=== PATIENT | female | born 1935 | race Caucasian/White ===

== ENCOUNTER 2020-06-16 13:54 | Inpatient (IN) | payer MEDICARE ==
[~2020-06-16] VITALS: Ht 172.7 cm; Wt 48.6 kg
--- NOTE | 2020-06-16 14:16 | NUR ---
PT BIB EMS FOR POS COVID [facility]. PT HAS DEMENTIA A&OX1. TO SELF ONLY. PT CO OF GENERALIZED PAIN. NOT IN DISTRESS. LOW EXTRMETIES BILAT 2+ EDEMA W FLAKY REDNESS. RECTAL TEMP 98.7. DRY MUCOUS MEMBRANES
[2020-06-16] MEDS ORDERED: SODIUM CHLORIDE 0.9% 1,000ML IVBOLUS ONE (14:30)
[2020-06-16] MEDS ORDERED: SODIUM CHLORIDE FLUSH 10ML SYR IVF ONE (14:30)
[2020-06-16 15:06] LABS: BASOPHILS % (AUTO) 0 % (0-1); EOSINOPHILS % (AUTO) 1 % (1-7); LYMPHOCYTES % (AUTO) 26 % (22-44); MEAN CORPUSCULAR HEMOGLOBIN 31.2 pg (27.0-34.8); MEAN CORPUSCULAR HGB CONC 33.1 g/dL (32.4-35.8); MEAN PLATELET VOLUME 7.2 fL (7.4-10.4); MONOCYTES % (AUTO) 9 % (2-9); NEUTROPHILS % (AUTO) 65 % (42-75); PLATELET COUNT 386 x10^3/uL (130-400); RED BLOOD COUNT 3.49 x10^6/uL (3.82-5.3)
[2020-06-16 15:14] LABS: ALANINE AMINOTRANSFERASE 16 U/L (12-78); ALBUMIN 2.6 g/dL (3.4-5.0); ANION GAP 6 mmol/L (5-15); CHLORIDE 110 mmol/L (98-107); CREATININE 0.98 mg/dL (0.55-1.02)
[2020-06-16 15:17] LABS: ALKALINE PHOSPHATASE 68 U/L (45-117); BILIRUBIN,TOTAL 0.6 mg/dL (0.2-1.0); TOTAL PROTEIN 6.9 g/dL (6.4-8.2)
[2020-06-16 15:22] LABS: MD NO
--- NOTE | 2020-06-16 16:12 | NUR ---
PT RESTING IN ROOM. REGULAR RESP. NO ACUTE DISTRESS NOTED. CARDIAC MONITIOR ON. WILL CONTINUE TO MONITIOR.
[2020-06-16 16:58] LABS: MICROSCOPIC NOT IND
--- NOTE | 2020-06-16 17:32 | NUR ---
PT RESTING IN ROOM. REGULAR RESP. VS STABLE. CALL LIGHT IN PLACE. WILL CONTINUE TO MONITOR.
[2020-06-16] MEDS ORDERED: LABETALOL 5MG/ML, 20ML IVPush PRN (18:00)
[2020-06-16] MEDS ORDERED: LACTATED RINGERS 1,000 ML IV SCH (18:00)
[2020-06-16] MEDS ORDERED: ACETAMINOPHEN 325 MG TABLET PO PRN (18:00)
[2020-06-16] MEDS ORDERED: ONDANSETRON ODT 4 MG PO PRN (18:00)
--- NOTE | 2020-06-16 18:33 | NUR ---
LAB IN ROOM. VS STABLE. CALL LIGHT IN PLACE. WILL CONTINUE TO MONITOR.
[2020-06-16 18:39] LABS: HCT (SEDRATE) 31.2 % (34.6-47.8)
[2020-06-16 18:59] LABS: C-REACTIVE PROTEIN, QUANT 5.75 mg/dL (0.02-0.49)
--- NOTE | 2020-06-16 19:04 | NUR ---
REPORT GIVEN TO JOSE CHAVARRIA
--- NOTE | 2020-06-16 19:09 | NUR ---
REPORT RECIEVBED FROM MELQUIADES GARCIA. PT RESTING IN [facility], NO NEEDS AT THIS TIME.
--- NOTE | 2020-06-16 21:40 | NUR ---
PT RESTLESS IN BED, PT TOOK OFF ALL MONITORS AND TOOK IV OUT, PT CLEANED UP AND GIVEN NEW BEDDING. WILL ATTEMPT NEW IV
[2020-06-16] MEDS ORDERED: HALOPERIDOL 5 MG/ML ONE (21:56)
[2020-06-16] MEDS ORDERED: HALOPERIDOL 5 MG/ML IM ONE (22:00)
--- NOTE | 2020-06-16 22:02 | NUR ---
PT VERY RESTLESS AND UNCOOPERATIVE, UNABLE TO PLACE IV, PT IS MOVING ARMS TOO MUCH AND CONFUSED. PT MEDICATED PER EMAR, WILL ATTEMPT IV WHEN PT IS MORE CALM. CONTINUOUS PULSE OX IN PLACE
--- NOTE | 2020-06-16 23:02 | NUR ---
PT PLACED ON HOSPITAL BED, NEW IV IN PLACE, PT DOZING INTERMITTENTLY AND MORE COOPERATIVE, WILL CONITNUE TO MONITOR
--- NOTE | 2020-06-17 00:10 | NUR ---
PT CLEANED UP, PT FEELING RESTLESS, NOT FOLLOWING COMMANDS. PT GIVEN NEW LINENS AND PT LAYING STILL AT THIS MOMENT, IV RETAPED.
--- NOTE | 2020-06-17 02:15 | NUR ---
PT VERY RESTLESS, PULLING OFF MONITORS, AND 02. PT UNCOOPERATIVE WITH THIS RN AND IS VERY CONFUSED. DR. MÁRQUEZ GAVE ORDER FOR REPEAT 2.5 MG HALDOL IM ONE TIME
[2020-06-17] MEDS ORDERED: HALOPERIDOL 5 MG/ML ONE (02:18)
[2020-06-17] MEDS ORDERED: HALOPERIDOL 5 MG/ML IM ONE (02:30)
--- NOTE | 2020-06-17 02:55 | NUR ---
float rn: pt attempted to remove bp/pulse ox cord, dressed pt back in gown, repositioned and 3 side rails up. pt reoriented to place/time. pt now resting in bed. call light in place
--- NOTE | 2020-06-17 04:35 | NUR ---
PT SLEEPING, RESPIRATIONS JESUS/UNLABORED, REPORT GIVEN TO JOSE APPLE
[2020-06-17 05:29] LABS: HCT (SEDRATE) 30.9 % (34.6-47.8)
[2020-06-17 05:30] LABS: BASOPHILS % (AUTO) 0 % (0-1); EOSINOPHILS % (AUTO) 0 % (1-7); LYMPHOCYTES % (AUTO) 11 % (22-44); MEAN CORPUSCULAR HEMOGLOBIN 31.1 pg (27.0-34.8); MEAN CORPUSCULAR HGB CONC 33.3 g/dL (32.4-35.8); MEAN PLATELET VOLUME 7.5 fL (7.4-10.4); MONOCYTES % (AUTO) 7 % (2-9); NEUTROPHILS % (AUTO) 82 % (42-75); PLATELET COUNT 358 x10^3/uL (130-400); RED BLOOD COUNT 3.35 x10^6/uL (3.82-5.3); RED CELL DISTRIBUTION WIDTH 13.6 % (9.6-15.2)
[2020-06-17 05:31] LABS: MD NO
[2020-06-17 05:42] LABS: D-DIMER 2.63 ug/mlFEU (0.00-0.52); INTERNATIONAL NORMALIZED RATIO 1.06 (0.93-1.1); PROTHROMBIN TIME 11.2 Seconds (9.6-11.5)
[2020-06-17 05:44] LABS: ALANINE AMINOTRANSFERASE 19 U/L (12-78); ALBUMIN 2.6 g/dL (3.4-5.0); ANION GAP 8 mmol/L (5-15); CALCIUM 8.8 mg/dL (8.5-10.1); CHLORIDE 108 mmol/L (98-107); CREATININE 0.98 mg/dL (0.55-1.02)
[2020-06-17 05:47] VITALS: BP 151/74
[2020-06-17 05:54] LABS: ALKALINE PHOSPHATASE 67 U/L (45-117); BILIRUBIN,TOTAL 0.6 mg/dL (0.2-1.0); TOTAL PROTEIN 6.8 g/dL (6.4-8.2)
[2020-06-17] MEDS ORDERED: DEXAMETHASONE 4 MG/ML, 5ML ONE (09:57)
[2020-06-17] MEDS: ZINC SULFATE 220 MG CAPSULE PO SCH ×2 (10:04→10:10)
[2020-06-17] MEDS: DEXAMETHASONE 4 MG/ML, 1ML IVPush SCH (10:04)
[2020-06-17] MEDS: THIAMINE 100MG TABLET PO SCH ×2 (10:04→10:09)
[2020-06-17] MEDS: CHOLECALCIFEROL 5,000u TAB PO SCH ×2 (10:04→10:09)
[2020-06-17] MEDS: ASCORBIC ACID 500 MG TABLET PO SCH ×2 (10:08→18:02)
[2020-06-17 10:13] VITALS: BP 135/81
[2020-06-17] MEDS ORDERED: POLYETHYLENE GLYCOL 17 GM PACKET NG ONE (13:30)
[2020-06-17 14:12] VITALS: BP 129/73
[2020-06-17] MEDS ORDERED: LORazepam 0.5MG TABLET PO PRN (15:00)
[2020-06-17] MEDS ORDERED: OMNIPAQUE 350 MG/ML, 100ML BOTTLE ONE (18:53)
[2020-06-17 19:35] VITALS: BP 139/68
[2020-06-17] MEDS: QUETIAPINE 25MG TABLET PO SCH (21:41)
[2020-06-18 01:00] VITALS: BP 122/70
[2020-06-18 04:45] LABS: BASOPHILS % (AUTO) 0 % (0-1); EOSINOPHILS % (AUTO) 0 % (1-7); LYMPHOCYTES % (AUTO) 16 % (22-44); MEAN CORPUSCULAR HGB CONC 33.1 g/dL (32.4-35.8); MEAN PLATELET VOLUME 7.8 fL (7.4-10.4); MONOCYTES % (AUTO) 13 % (2-9); NEUTROPHILS % (AUTO) 71 % (42-75); PLATELET COUNT 355 x10^3/uL (130-400); RED BLOOD COUNT 3.42 x10^6/uL (3.82-5.3); RED CELL DISTRIBUTION WIDTH 13.6 % (9.6-15.2)
[2020-06-18 04:52] LABS: INTERNATIONAL NORMALIZED RATIO 1.08 (0.93-1.1); MD NO; PROTHROMBIN TIME 11.4 Seconds (9.6-11.5)
[2020-06-18 04:57] LABS: CALCIUM 8.9 mg/dL (8.5-10.1); CHLORIDE 106 mmol/L (98-107)
[2020-06-18 05:05] LABS: ALANINE AMINOTRANSFERASE 22 U/L (12-78); ALBUMIN 2.5 g/dL (3.4-5.0); ALKALINE PHOSPHATASE 61 U/L (45-117); ANION GAP 10 mmol/L (5-15); BILIRUBIN,TOTAL 0.7 mg/dL (0.2-1.0); CREATININE 0.91 mg/dL (0.55-1.02); TOTAL PROTEIN 6.6 g/dL (6.4-8.2)
[2020-06-18 07:30] VITALS: BP 128/70
[2020-06-18] MEDS: DEXAMETHASONE 4 MG/ML, 1ML IVPush SCH (09:00)
[2020-06-18] MEDS ORDERED: DEXAMETHASONE 4 MG/ML, 5ML ONE (10:37)
[2020-06-18] MEDS: THIAMINE 100MG TABLET PO SCH (11:05)
[2020-06-18] MEDS: ZINC SULFATE 220 MG CAPSULE PO SCH (11:05)
[2020-06-18] MEDS: ASCORBIC ACID 500 MG TABLET PO SCH ×2 (11:05→17:00)
[2020-06-18] MEDS: CHOLECALCIFEROL 5,000u TAB PO SCH (11:05)
[2020-06-18 12:53] VITALS: BP 175/80
[2020-06-18 21:05] VITALS: BP 133/81
[2020-06-18] MEDS: MELATONIN 5 MG TABLET PO PRN (21:08)
[2020-06-18] MEDS: QUETIAPINE 25MG TABLET PO SCH (21:08)
[2020-06-19 00:40] VITALS: BP 140/87
[2020-06-19 07:15] LABS: BASOPHILS % (AUTO) 0 % (0-1); EOSINOPHILS % (AUTO) 0 % (1-7); LYMPHOCYTES % (AUTO) 27 % (22-44); MEAN CORPUSCULAR HEMOGLOBIN 31.3 pg (27.0-34.8); MEAN CORPUSCULAR HGB CONC 33.1 g/dL (32.4-35.8); MEAN PLATELET VOLUME 7.7 fL (7.4-10.4); MONOCYTES % (AUTO) 10 % (2-9); NEUTROPHILS % (AUTO) 62 % (42-75); PLATELET COUNT 386 x10^3/uL (130-400); RED BLOOD COUNT 3.23 x10^6/uL (3.82-5.3); RED CELL DISTRIBUTION WIDTH 13.5 % (9.6-15.2)
[2020-06-19 07:17] LABS: MD NO
[2020-06-19 07:26] LABS: ANION GAP 10 mmol/L (5-15); CALCIUM 8.9 mg/dL (8.5-10.1); CHLORIDE 108 mmol/L (98-107)
[2020-06-19 07:27] LABS: CREATININE 0.96 mg/dL (0.55-1.02)
[2020-06-19 08:57] VITALS: BP 119/58
[2020-06-19] MEDS: THIAMINE 100MG TABLET PO SCH (10:32)
[2020-06-19] MEDS: ASCORBIC ACID 500 MG TABLET PO SCH (10:32)
[2020-06-19] MEDS: CHOLECALCIFEROL 5,000u TAB PO SCH (10:32)
[2020-06-19] MEDS: ZINC SULFATE 220 MG CAPSULE PO SCH (10:32)
[2020-06-19] MEDS: DEXAMETHASONE 4 MG/ML, 1ML IVPush SCH (10:33)
[2020-06-19 13:16] VITALS: BP 117/74
[2020-06-19 18:58] VITALS: BP 113/71
[2020-06-19] MEDS: MELATONIN 5 MG TABLET PO PRN (20:17)
[2020-06-19] MEDS: AMOXICILLIN/CLAV 875-125MG TABLET PO SCH (20:18)
[2020-06-19] MEDS: QUETIAPINE 25MG TABLET PO SCH (20:18)
[2020-06-19] MEDS: LACTOBACILLUS CHEW TABLET PO SCH (20:18)
[2020-06-20 00:53] VITALS: BP 148/82
[2020-06-20 07:24] VITALS: BP 144/75
[2020-06-20] MEDS: LACTOBACILLUS CHEW TABLET PO SCH ×2 (07:49→12:00)
[2020-06-20] MEDS: AMOXICILLIN/CLAV 875-125MG TABLET PO SCH (07:49)
[2020-06-20 12:41] VITALS: BP 124/67
[2020-06-20] MEDS ORDERED: ACID1TAB7 PO (14:00)
[2020-06-20] MEDS ORDERED: AMOX1TAB12 PO (14:00)
[2020-06-20] MEDS ORDERED: QUET25TA7 PO (14:00)
== END 2020-06-20 15:50 | DRG 189 ==
LOC: ED 16:01 → SUATTDRO 17:27 → EDIP 17:46 → 3N 06-17 05:29 → 4NW 06-19 23:33
PROVIDERS: ADMIT Hospitalist; ATTEND Internal Medicine
PROC: 0T9B70Z Drainage of Bladder with Drainage Device, Via Natural or Artificial Opening (ICD-10-PCS; principal; 2020-06-16)
DX: J96.01 Acute respiratory failure with hypoxia (principal); J98.11 Atelectasis; J01.90 Acute sinusitis, unspecified; E88.09 Other disorders of plasma-protein metabolism, not elsewhere classified; E86.0 Dehydration; F03.90 Unspecified dementia, unspecified severity, without behavioral disturbance, psychotic disturbance, mood disturbance, and anxiety; D63.8 Anemia in other chronic diseases classified elsewhere; I87.2 Venous insufficiency (chronic) (peripheral); J32.0 Chronic maxillary sinusitis; K44.9 Diaphragmatic hernia without obstruction or gangrene; Z66 Do not resuscitate; Z79.899 Other long term (current) drug therapy
CPT/HCPCS: 36415; 70450; 71045; 71275; 74018; 80048; 80053; 81003; 82140; 82728; 83605; 83615; 83735; 83880; 84100; 84145; 84443; 85025; 85379; 85384; 85610; 85651; 86140; 87040; 93005; 93970; 96360; 96372; 99285; G0378; J1100; Q9967; J1630; J7030; J7120; U0003

== ENCOUNTER 2020-06-20 17:18 | Emergency (ER) | payer MEDICARE, BC ==
[~2020-06-20] VITALS: Ht 172.7 cm; Wt 65.0 kg
[~2020-06-20 17:18] MED LIST: ACID1TAB7 PO; AMOX1TAB12 PO; QUET25TA7 PO
[2020-06-20] MEDS ORDERED: SODIUM CHLORIDE FLUSH 10ML SYR IVF ONE (17:30)
[2020-06-20 17:39] LABS: BASOPHILS % (AUTO) 1 % (0-1); EOSINOPHILS % (AUTO) 1 % (1-7); LYMPHOCYTES % (AUTO) 18 % (22-44); MEAN CORPUSCULAR HEMOGLOBIN 30.6 pg (27.0-34.8); MEAN CORPUSCULAR HGB CONC 32.8 g/dL (32.4-35.8); MEAN PLATELET VOLUME 7.5 fL (7.4-10.4); MONOCYTES % (AUTO) 9 % (2-9); NEUTROPHILS % (AUTO) 73 % (42-75); PLATELET COUNT 422 x10^3/uL (130-400); RED BLOOD COUNT 3.94 x10^6/uL (3.82-5.3); RED CELL DISTRIBUTION WIDTH 13.7 % (9.6-15.2)
[2020-06-20 17:42] LABS: MD NO
[2020-06-20 17:51] LABS: ALANINE AMINOTRANSFERASE 23 U/L (12-78); ALBUMIN 2.7 g/dL (3.4-5.0); ANION GAP 7 mmol/L (5-15); CALCIUM 8.9 mg/dL (8.5-10.1); CHLORIDE 105 mmol/L (98-107); CREATININE 1.34 mg/dL (0.55-1.02)
[2020-06-20 17:55] LABS: ALKALINE PHOSPHATASE 64 U/L (45-117); BILIRUBIN,TOTAL 0.3 mg/dL (0.2-1.0); TOTAL PROTEIN 7.2 g/dL (6.4-8.2); TROPONIN I < 0.015 ng/mL (0.000-0.045)
[2020-06-20] MEDS ORDERED: SODIUM CHLORIDE 0.9% 1,000ML IVBOLUS ONE (18:30)
[2020-06-20] MEDS ORDERED: ACETAMINOPHEN 325 MG TABLET PO PRN (19:00)
[2020-06-20] MEDS ORDERED: BISACODYL 10 MG SUPP PR PRN (19:00)
[2020-06-20] MEDS ORDERED: POLYETHYLENE GLYCOL 17 GM PACKET PO PRN (19:00)
[2020-06-20] MEDS ORDERED: ONDANSETRON ODT 4 MG PO PRN (19:00)
--- NOTE | 2020-06-20 19:00 | NUR ---
PT PULLED OUT IV.
--- NOTE | 2020-06-20 19:04 | NUR ---
Ivan oliver in ED - 06/20/20 at 1905 by ABDIEL PT TRANSPORTED TO CT.
--- NOTE | 2020-06-20 19:05 | NUR ---
PT TRANSPORTED TO [facility].
[2020-06-20] MEDS: SODIUM CHLORIDE 0.9% 1,000 ML IV SCH (20:03)
[2020-06-20] MEDS: AMOXICILLIN/CLAV 875-125MG TABLET PO SCH (20:39)
[2020-06-20] MEDS: LACTOBACILLUS CHEW TABLET PO SCH (20:40)
[2020-06-20] MEDS: QUETIAPINE 25MG TABLET PO SCH (20:40)
--- NOTE | 2020-06-20 20:50 | NUR ---
PT MEDICATED PER SEP, SWALLOWED PILLS WITHOUT DIFFICULTY.
--- NOTE | 2020-06-20 23:06 | NUR ---
bedside report from [facility] pt care transferred at this time
--- NOTE | 2020-06-21 00:49 | NUR ---
pt resting on hospital bed, appears comfortable, nad, eyes closed, even and unlabored respirations. wctm. sitter in line of sight, waiting for admit bed.
--- NOTE | 2020-06-21 02:24 | NUR ---
PT RESTING ON HOSPITAL BED, SITTER IN LINE OF SIGHT, EYES CLOSED, NAD, APPEARS COMFORTABLE, EVEN AND UNLABORED RESPIRATIONS, WCTM. WAITING FOR ADMIT BED.
--- NOTE | 2020-06-21 04:03 | NUR ---
pt nad, resting on hospital bed, eyes closed, appears comfortable, no change in condition, wctm.
[2020-06-21] MEDS: SODIUM CHLORIDE 0.9% 1,000 ML IV SCH ×2 (05:00→15:00)
[2020-06-21 05:13] LABS: ANION GAP 5 mmol/L (5-15); CALCIUM 8.8 mg/dL (8.5-10.1); CHLORIDE 107 mmol/L (98-107); CREATININE 0.91 mg/dL (0.55-1.02)
--- NOTE | 2020-06-21 06:37 | NUR ---
pt linens changed, breakfast tray ordered, nad, bed in lowest, call light on lap, sitter in line of sight, no other changes in condition. wctm
--- NOTE | 2020-06-21 07:00 | NUR ---
SBAR RPT REC'D AND ASSUMED PT CARE. SITTER AT DOORWAY 2/2 TO PT WITH HX DEMENTIA AND WAS PULLING ON LINES DURRING THE NOC. PT RESTING WITH EYES CLOSED, IVF INFUSING W/O DIFFICULTY, RESP EVEN NON-LABORED. VSS
--- NOTE | 2020-06-21 07:00 | NUR ---
bedside report to chirag sherman, pt care transferred at this time.
--- NOTE | 2020-06-21 07:50 | NUR ---
PT ARROUSES TO VERBAL STIM. FOLLOWS SOME SIMPLE COMMANDS TO SQUEEZE MY HANDS. ASSESSMENT NOTED. VSS. MEAL TRAY ORDERED. SITTER REMAINS AT BEDSIDE.
--- NOTE | 2020-06-21 07:57 | NUR ---
PT NOTED TO HAVE 30-45 SEC PERIODS OF APNEA. 02 2L NC PLACED AND WILL CONTINUE TO MONITOR.
--- NOTE | 2020-06-21 08:04 | NUR ---
EMT AT BEDSIDE TO ASSIST PT WITH EATING BREAKFAST. PT COOPERATIVE AND INTERACTIVE. TOLLERATING FOOD WELL.
[2020-06-21] MEDS ORDERED: AMOXICILLIN/CLAV 875-125MG TABLET ONE ×2 (08:07→23:09)
[2020-06-21] MEDS ORDERED: SENNA/DOCUSATE TABLET ONE (08:07)
[2020-06-21] MEDS: SENNA/DOCUSATE TABLET PO SCH (08:14)
[2020-06-21] MEDS: AMOXICILLIN/CLAV 875-125MG TABLET PO SCH ×2 (08:15→21:45)
--- NOTE | 2020-06-21 08:45 | NUR ---
PT TOLLERATED BREAKFAST, AND ATE APPROX 75%. NAD NOTED.
[2020-06-21] MEDS: LACTOBACILLUS CHEW TABLET PO SCH ×3 (09:00→17:00)
--- NOTE | 2020-06-21 09:22 | NUR ---
PT MOVED TO ROOM 2, SBAR RPT TO JOSE SUTTON. SITTER AT DOORWAY WITH PT IN VIEW. ORAL CARE WAS ATTEMPTED BUT PT REFUSED.
--- NOTE | 2020-06-21 09:30 | NUR ---
PT REFUSING PO MED.
--- NOTE | 2020-06-21 12:45 | NUR ---
PT UPRIGHT ON HOSPITAL BED REMOVING GOWN & MONITORS, REQUIRES FREQ REDIRECTION, NAD, COMFORT MEASURES PROVIDED, SITTER IN VIEW.
--- NOTE | 2020-06-21 13:50 | NUR ---
SPOKE W/ PTS SON KATH. STATES THAT WHEN PT IS STABLE FOR DC, HE CAN TAKE HER HOME UNTIL SHE [facility]. HE IS REQUESTING HOME HEALTH REFERRAL. ADMITTING PROVIDER UPDATED, DC NOT INDICATED AT THIS TIME.
--- NOTE | 2020-06-21 14:20 | NUR ---
LUNCH TRAY DELIVERED.
--- NOTE | 2020-06-21 15:00 | NUR ---
PT ABLE TO FEED SELF W/ INSTRUCTION. CONSUMED REGULAR DIET W/O INCIDENT.
--- NOTE | 2020-06-21 15:19 | NUR ---
PT RESTING ON HOSPITAL BED W/ SITTER OUTSIDE ROOM FOR SAFETY. RESP EVEN AND UNLABORED, NADN.
--- NOTE | 2020-06-21 17:00 | NUR ---
PT REFUSING PO MEDS.
--- NOTE | 2020-06-21 18:44 | NUR ---
HYDRAGUARD AND CALAZINE APPLIED TO BILAT LWR LEGS.
--- NOTE | 2020-06-21 18:58 | NUR ---
REPORT GIVEN TO LAMIN GARCIA. PT RESTING ON HOSPITAL W/ SIDE RAILS UPX2 AND CALL LIGHT IN REACH, SITTER OUTSIDE ROOM FOR SAFETY. RESP EVEN AND UNLABORED, MELVIN.
--- NOTE | 2020-06-21 18:58 | NUR ---
Report received from JOSE Marsh. This RN to assume care. Will attempt to provide food tray to patient.
--- NOTE | 2020-06-21 20:41 | NUR ---
Patient accepted food. Eating without assistance or difficulty.
--- NOTE | 2020-06-21 21:40 | NUR ---
Medicated patient per sep. Admin meds with applesauce.
[2020-06-21] MEDS: QUETIAPINE 25MG TABLET PO SCH (21:45)
--- NOTE | 2020-06-21 21:51 | NUR ---
Patient sleeping in hospital bed. Respirations even and unlabored. Sitter outside for safety.
[2020-06-21] MEDS ORDERED: QUETIAPINE 25MG TABLET ONE (23:09)
--- NOTE | 2020-06-22 00:23 | NUR ---
Patient sleeping in hospital bed. Respirations even and unlabored. Sitter outside for safety.
[2020-06-22] MEDS: SODIUM CHLORIDE 0.9% 1,000 ML IV SCH ×2 (01:00→12:10)
--- NOTE | 2020-06-22 01:12 | NUR ---
RECEIVED REPORT FROM JOSE MCFADDEN TO ASSUME CARE OF PT. PT. RESTING ON HOSPITAL BED WITH EYES CLOSED. RESPIATIONS VISIBLE: EVEN, AND NON-LABORED. SITTER IN ANTUNEZ FOR PT. SAFETY. PORTRAIT CONSULTANT IN PLACE. ALL SAFETY MEASURES OBSERVED.
--- NOTE | 2020-06-22 01:12 | NUR ---
Patient sleeping in hospital bed. Respirations even and unlabored. Sitter outside for safety.
--- NOTE | 2020-06-22 01:12 | NUR ---
Report to JOSE Yuen. Patient care transferred.
--- NOTE | 2020-06-22 02:18 | NUR ---
PT. CONTINUES RESTING ON BED WITH EYES CLOSED. NO DISTRESS NOTED. EVEN, NON-LABORED RESPIRATIONS. SITTER REMAINS IN VIEW. ALL SAFETY MEASURE MAINTAINED.
--- NOTE | 2020-06-22 03:57 | NUR ---
PT. NOW AWAKE AND IS VERY FIDGETY. SITTER PROVIDES RE-DIRECTION WHEN NECESSARY. PT. DENIES NEEDS. SAFETY MEASURES MAINTAINED.
--- NOTE | 2020-06-22 05:13 | NUR ---
PT. RESTING ON BED WITH EYES CLOSED. NO DISTRESS NOTED. RESPIRATIONS VISIBLE AND NON-LABORED.
--- NOTE | 2020-06-22 05:57 | NUR ---
VS UPDATED. PT. PLEASANTLY CONFUSED. DENIES NEEDS AT THIS TIME. ALL SAFETY MEASUERS OBSERVED. SITTER REMAINS IN ANTUNEZ.
--- NOTE | 2020-06-22 07:07 | NUR ---
REPORT FROM JOSE GAINES. PT ASLEEP RESPIRATIONS EVEN AND UNLABORED ON RA. PT REMAINS ON WELDING MACHINE OPERATOR PLASMA ARC. SITTER OUTSIDE OF ROOM FOR DIRECT OBSERVATION. AWAITING PT'S BREAKFAST TRAY. MEDICATION REQUEST SENT FOR PT'S MORNING MEDICATIONS.
--- NOTE | 2020-06-22 07:50 | NUR ---
MEDICATION SLIP RESENT FOR REMAINDER OF MEDICATIONS. AWAITING MEDS FROM PHARMACY. PT RESTING IN BED WITH EYES CLOSED. PARTS PERSON REMAINS IN PLACE. SITTER OUTSIDE OF ROOM.
[2020-06-22] MEDS ORDERED: SENNA/DOCUSATE TABLET ONE (07:52)
[2020-06-22] MEDS ORDERED: AMOXICILLIN/CLAV 875-125MG TABLET ONE (07:52)
--- NOTE | 2020-06-22 08:41 | NUR ---
PT AWAKE. STILL WAITING FOR FINAL MED FROM PHARMACY. SITTER INTERACTING WITH PT. NAD NOTED AT THIS TIME.
[2020-06-22] MEDS: LACTOBACILLUS CHEW TABLET PO SCH ×2 (09:02→12:10)
[2020-06-22] MEDS: SENNA/DOCUSATE TABLET PO SCH (09:02)
[2020-06-22] MEDS: AMOXICILLIN/CLAV 875-125MG TABLET PO SCH (09:02)
--- NOTE | 2020-06-22 09:10 | NUR ---
PT MEDICATED PER EMAR WITH HELP FROM RN. SWALLOWED PILLS WELL, NEEDED ABX CRUSHED IN APPLE SAUCE. PT RESISTED BEING SAT UP IN BED, AGITATED FOLLOWING REPOSITIONING. PT REORIENTED TO CURRENT SURROUNDINGS. EATING FOOD INDEPENDENTLY. SITTER OUTSIDE OF ROOM FOR DIRECT OBSERVATION AND Q15 MIN SAFETY CHECKS.
--- NOTE | 2020-06-22 09:47 | NUR ---
HOSPITALIST IN TO ASSESS PT. PT STILL EATING FOOD. SITTER OUTSIDE OF ROOM FOR DIRECT OBSERVATION AND Q15 MIN SAFETY CHECKS.
--- NOTE | 2020-06-22 10:42 | NUR ---
PT ASLEEP IN BED, RESPIRATIONS EVEN AND UNLABORED ON RA. NAD NOTED AT THIS TIME. SITTER OUTSIDE OF ROOM FOR DIRECT OBSERVATION AND SAFETY CHECKS.
--- NOTE | 2020-06-22 11:20 | NUR ---
PT MEAL TRAY ORDERED.
--- NOTE | 2020-06-22 11:33 | NUR ---
REQUEST FOR MED SENT TO PHARMACY.
--- NOTE | 2020-06-22 12:10 | NUR ---
LUNCH PROVIDED. NAD NOTED AT THIS TIME. DISCUSSION WITH PT REGARDING BEDDING CHANGE AND LIONEL CARE AFTER LUNCH. SITTER REMAINS OUTSIDE OF ROOM FOR OBSERVATION.
--- NOTE | 2020-06-22 13:03 | NUR ---
PT PERICARE ADMINISTERED, BARRIER CREAM APPLIED. NEW PUREWICK APPLIED. COMPLETE BEDDING CHANGE FOLLOWING FOOD. PT TUCKED INTO BED. DONE WITH LUNCH. NAD NOTED AT THIS TIME. PT VERBALIZES COMFORT. SITTER OUTSIDE OF ROOM FOR OBSERVATION AND SAFETY.
--- NOTE | 2020-06-22 14:09 | NUR ---
PT REPOSITIONED IN BED FOR COMFORT. HOB AND LEG LEVEL ALTERED PER PT COMFORT. NAD NOTED AT THIS TIME. SITTER OUTSIDE OF ROOM FOR DIRECT OBSERVATION AND Q15 MIN SAFETY CHECKS.
--- NOTE | 2020-06-22 14:41 | NUR ---
CALL TO PT'S SON KATH REGARDING DC INSTRUCTIONS AND EDUCATION. SON TO COME TIN STACKER PT AND BRING TO HIS HOME.
[2020-06-22] MEDS ORDERED: QUET25TA5 PO (14:50)
[2020-06-22] MEDS ORDERED: AMOX1TAB64 PO (14:51)
--- NOTE | 2020-06-22 14:57 | NUR ---
CALL TO DR ELLIS REGARDING PT'S "CONTINUE THESE MEDICATIONS" DR ELLIS TO PLACE ELECTRONIC RX IN TO [facility], PER SON'S PREFERRED PHARMACY.
[2020-06-22 15:05] VITALS: BP 142/86
== END 2020-06-22 16:23 | disposition home or self-care (01) ==
LOC: ED 18:46 → EDIP 18:47 → UNDOADMOB 18:47 → ED 20:06 → EDIP 20:50 → UNDOADMIN 20:50
DX: R55 Syncope and collapse (principal); E86.0 Dehydration
CPT/HCPCS: 36415; 71045; 80048; 80053; 83880; 84484; 85025; 93005; 93880; 96360; 96361; 99285; J7030